=== PATIENT | male | born 1985 | race African-American/Black ===

== ENCOUNTER 2020-10-18 16:58 | Emergency (ER) | payer BC, SELFPAY ==
[2020-10-18 17:24] VITALS: BP 156/107; PULSE 89; RESP 20; TEMP 37.2; O2SAT 100
--- NOTE | 2020-10-18 17:43 | ED.MALEGU ---
HPI - Male Genitourinary General Chief complaint: Urogenital-Male Stated complaint: STD test Time Seen by Provider: 10/18/20 17:43 Source: patient and family Mode of arrival: ambulatory History of Present Illness HPI Narrative: Patient here for STD testing. Patient denies any known exposure denies any symptoms. Related Data Home Medications Medication Instructions Recorded Confirmed No Home Medications 10/18/20 10/18/20 Allergies Allergy/AdvReac Type Severity Reaction Status Date / Time No Known Drug Allergies Allergy Mild Verified 03/05/13 18:57 Review of Systems Review of Systems: CONSTITUTIONAL: Denies fever, chills, or sweats. EYES: Denies visual changes, redness, or discharge. ENT: Denies rhinorrhea, congestion, sore throat, or otalgia. CARDIOVASCULAR: Denies chest pain, palpitations, or edema. RESPIRATORY: Denies cough or dyspnea. GASTROINTESTINAL: Denies abdominal pain, nausea, vomiting, or diarrhea. GENITOURINARY: Denies dysuria or hematuria. SKIN: Denies rash or itching. MUSCULOSKELETAL: Denies back pain, joint pain, or myalgia. NEUROLOGIC: Denies headache, numbness, or weakness. PSYCHIATRIC: Denies anxiety or depression. PMFSH Social History Social History Gender identity (if verbalized by the patient): Male Comments At time of signature, agree with nursing past medical, surgical, social and family history. There is no relevant family history pertinent to the presenting complaint Exam Narrative: GENERAL: Well-appearing, well-nourished, and in no acute distress. HEAD: Normocephalic, atraumatic. EYES: PERRLA and EOMI. ENT: Nares clear, no rhinorrhea or epistaxis. Mucous membranes moist. NECK: Supple. CHEST: Clear to auscultation. No respiratory distress. HEART: Regular rate and rhythm. No murmur heard. Normal peripheral pulses. ABDOMEN: Soft, nontender, nondistended, normal active bowel sounds. EXTREMITIES: Normal range of motion. No edema. SKIN: Warm, dry, no rash. NEURO: No focal deficits. Alert and oriented x3. Mustapha Coma Scale Eye Opening: Spontaneous 4 [place] Coma Scale Motor: Obeys Commands 6 [place] Coma Scale Verbal: Oriented 5 [place] Coma Scale Total 15 Course Vital Signs Vital signs: Vital Signs Temperature 37.2 C 10/18/20 17:24 Pulse Rate 89 10/18/20 17:24 Respiratory Rate 20 10/18/20 17:24 Blood Pressure 156/107 H 10/18/20 17:24 Pulse Oximetry 100 10/18/20 17:24 Temperature 37.2 C 10/18/20 17:24 Pulse Rate 89 10/18/20 17:24 Respiratory Rate 20 10/18/20 17:24 Blood Pressure 156/107 H 10/18/20 17:24 Pulse Oximetry 100 10/18/20 17:24 Addressed elevated BP today. Today's blood pressure higher than recommended range. Discussed importance of follow -up with PCP and possible ocean transportation intermediary effects/cardiovascular events related to HTN. Currently patient denies headache, dizziness, vision changes, CP or shortness of breath. Please BAIRON schedule a followup visit with your personal physician for further evaluation and treatment. Including recheck and discussion of your blood pressure. If your symptoms persist, change or worsen significantly before you can contact your personal physician then please, without delay, go to the emergency department for further evaluation Discussed with patient hypertension. Today's blood pressure higher than recommended range. Discussed importance of follow -up with PCP and CV events related to HTN. Currently patient denies headache, vision changes, CP or shortness of breath. Critical dx considered and discussed with pt. Educated patient on red flag s/s and to go to ED if s/s occur. Discussed with pt when to return to [facility] or primary care provider. Pt gave verbal undertstanding, all questions were answered, and pt was agreeable to plan MDM - Male Genitourinary Differential Diagnosis Differential diagnosis: Likely urinary tract infection, urethritis, epididymitis, genital herpes simplex, acute retention of urine, in
== END 2020-10-18 18:05 | disposition home or self-care (01) ==
PROVIDERS: Emergency Provider Nurse Practitioner Family
DX: A64 Unspecified sexually transmitted disease (principal)
CPT/HCPCS: 81003; 87491; 87591; 87661; 99213; G0463

== ENCOUNTER 2025-01-06 15:44 | Emergency (ER) | payer BC, SELFPAY ==
--- OUTSIDE RECORDS SUMMARY | 2024-01-09 | XMS_ITS | Continuity of Care Document ---
Author Organization [facility] Address [address] [place] [address] [address] [place] [address] Phone Care Team Providers Care Burglar Alarm Inspector Name Role Phone Michael DAVENPORT, Sherry Unavailable Unavailable Allergies, Adverse Reactions, Alerts Substance Reaction Status Criticality No Known Allergies Active No Inform ation Procedures Procedure Date FUNDUS PHOTOGRAPHY CORNEAL TOPOGRAPHY REFRACTION OFFICE CONSULTATION OFFICE/OUTPATIENT VISIT, [facility] CORNEAL TOPOGRAPHY EYE EXAM WITH PHOTOS REFRACTION Results Test Name Date and Time Measure Units Reference Range Abnormal Flag Status Commen ts Panel Description: [id number] Final Image Zeiss Result 1 Panel Description: [id number] Final Image Zeiss Result 2 Advance Directives Directive Yes / No Effective Date File Name No Information Encounters Encounter Description Practice Location Reason(s) For Visit Diagnoses Date Provider Providers Copied on Encounter OFFICE CONSULTATION [facility], [address] [place] [address], [id number], tel:[phone] [facility] blurry vision (chief complaint) ExotropiaMyop ia, bilateral 4 Michael Sanchesin. [address], [place], [place], [id number], [place]. tel:[phone] Referring Provider: Family Friends A. OFFICE/OUTPAT IENT VISIT, [facility], [address] [place] [address] [address], [place], [place], [id number], tel:[phone] [facility] LHI eval (chief complaint) ExophoriaAsti gmatism of both eyes [address] Janice Smith. [address], [address], [place], [place], [id number], . tel:[phone] Referring Provider: Luis Rodriguez, [address], [place], [address]. tel:[phone] Family History Family Member Type Diagnosis Age At Onset No Information Payers Payer name Insurance type Covered libertarian ID Authorcatarinoa manjeet(s) [facility] [employer] [facility] [id number] Social History Type Description Quantity Date Captured Comments Alcohol Use Details Unknown Caffeine Use Details Unknown Tobacco Use Status Current non-smoker Smoking Status Never smoker Non-Smoking Tobacco Use Details : No Details Available : No Details Available Sex Male Vital Signs Date / Time: Height Weight BMI Pulse Rate Blood Pressure Temperature Respiratory Rate Body Surface Area Head Circumference Head Circ. Percentile Wt./Jimmie. Percentile BMI percentile Pulse Ox Inhaled Ox 8:15 AM 70.00 in 77.111 kg (170.00 lbs) 24.3 9 kg/m eter (2) Chief Complaint And Reason For Visit From encounter dated '01/09/2024 06:00'. blurry vision (chief complaint). Description: The 38 year old male presents for evaluation of blurry vision, patient says that he didn't notice anything wrong with his vision until he did thevision test for the [facility]. He says that vision in OD was blurry. OS vision seems to be good. He has noticed that when he's tired OD seems to float. Denies pain/discomfort. Reason For Referral Reason For Referral No Information Plan Of Treatment Date Type Action Status Future Order: Radiology Order Ni dek OPD III NV ([id number]), Sent on: Sent History Of Present Illness Encounter Date Complaint History Of Prese nt Illness blurry vision The 38 year old male presents for evaluation of blurry vision, patient says that he didn't notice anything wrong with his vision until he did the vision test for the [facility]. He says that vision in OD was blurry. OS vision seems to be good. He has noticed that when he's tired OD seems to float. Denies pain/discomfort. I eval Patient presents for I eval. Patient reports that when he's looking straight ahead, if there's any activity to the right side, his OD will move independently of the OS and track it. He reports no issues with vision. 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 He noticed it about 15 years ago and it's constant w/o change. Functional Status Date Functional Assessmen t No Information Instructions Date Instruction Additional Infor mation Impression/Plan Related to Myopi a, bilateral Impression/Plan Related to Exotr opia Impression/Plan - Di scussed diagnosis in detail with patient. Corneal brad, Mrx, and Fundus photos were ordered today. Related to Astigmatism of both eyes Impression/Plan - Di scussed diagnosis in detail with patient. Related to Exophoria Assessments Type Assessment Date assessment Exotropia assessment Myopia, bilateral impression Myopia, bilateral: H52.13 impression Exotropia: H50.10 Patient Care Teams Name Effective Dates (start - stop) Status Members No Information
[2025-01-06 15:54] VITALS: BP 206/141; PULSE 87; RESP 18; TEMP 36.4; O2SAT 100
[2025-01-06 16:02] VITALS: BP 177/132; PULSE 87; RESP 14; O2SAT 99
[2025-01-06 16:31] LABS: Hematocrit 39.0 % (42.0-52.0); Hemoglobin 13.3 g/dL (14.0-18.0); Immature Granulocyte Percent A 0.4 % (0-0.5); Lymphocytes Absolute Auto 2.00 K/mm3 (0.9-3.2); Mean Corpuscular HGB Conc 34.1 g/dl (32-36); Mean Corpuscular Hemoglobin 29.3 pg (26-34); Mean Corpuscular Volume 85.9 fl (80-100); Nucleated Red Blood Cells Absolute Auto 0.000 K/mm3 (0.0-0.012); Nucleated Red Blood Cells Perc 0.0 % (0.0-0.2); Platelet Count Result 214 k/mm3 (150-375); Red Blood Count 4.54 M/mm3 (4.6-6.20); White Blood Count 8.0 K/mm3 (4.5-10.0)
[2025-01-06 16:56] LABS: Alanine Aminotransferase 29 U/L (6-50); Albumin Level 4.3 g/dL (3.5-5.1); Alkaline Phosphatase 52 U/L (38-126); Anion Gap 7 mmol/L (4-12); Aspartate Amino Transferase 41 U/L (17-59); Bilirubin,Total 0.5 mg/dL (0.2-1.3); Blood Urea Nitrogen 17 mg/dL (9-20); Calcium 9.0 mg/dL (8.4-10.2); Carbon Dioxide 28 mmol/L (22-30); Chloride 103 mmol/L (98-107); Estimated CRCL calculation 75 ml/min; Estimated Glomerular Filt Rate 57; Glucose 101 mg/dL (65-110); Potassium 4.2 mmol/L (3.4-5.0); Sodium 138 mmol/L (137-145); Total Protein 7.7 g/dL (6.3-8.2)
--- NOTE | 2025-01-06 16:58 | ED_ITS ---
HPI - Recheck/Abnormal Lab/Rx General Chief Complaint: Recheck/Abnormal Lab/Rx Stated Complaint: htn Time Seen by Provider: 01/06/25 15:59 Source: patient Mode of arrival: ambulatory Limitations: no limitations History of Present Illness HPI narrative: This is a 39-year-old male that presents to the emergency department for elevated blood pressure reading. He was seen at a dentist office and told his blood pressure was elevated and he should go to the ER. He does not have any symptoms. Related Data Allergies Allergy/AdvReac Type Severity Reaction Status Date / Time No Known Allergies Allergy Verified 01/06/25 15:46 Review of Systems 2 Review of Systems: All systems reviewed & are unremarkable except as noted in HPI and below PMFSH Social History Social History Gender identity (if verbalized by the patient): Male Exam 2 Narrative: GENERAL: Well-appearing, well-nourished, and in no acute distress. HEAD: Normocephalic, atraumatic. EYES: EOMI. CHEST: Clear to auscultation. No respiratory distress. No wheezes rales or rhonchi HEART: Regular rate and rhythm. No murmur heard. Normal peripheral pulses. EXTREMITIES: Normal range of motion. No edema. SKIN: Warm, dry, no rash. NEURO: No focal deficits. Alert and oriented x3. PSYCH: Normal mood and affect Course Vital Signs Vital signs: Vital Signs Temperature 97.6 F 01/06/25 15:54 Pulse Rate 87 01/06/25 15:54 Respiratory Rate 18 01/06/25 15:54 Blood Pressure 206/141 H 01/06/25 15:54 Pulse Oximetry 100 01/06/25 15:54 Temperature 97.6 F 01/06/25 15:54 Pulse Rate 87 01/06/25 16:02 Respiratory Rate 14 01/06/25 16:02 Blood Pressure 177/132 H 01/06/25 16:02 Pulse Oximetry 99 01/06/25 16:02 MDM - Recheck/Abnormal Lab/Rx MDM Narrative Medical decision making narrative: Patient presents to the ER for asymptomatic hypertension. Blood pressure elevated to 200 upon arrival. Down trended to 170s without intervention. Will be started on blood pressure medication, given follow-up with primary provider. He was given warnings to return to the ER Lab Data Attestation: I reviewed the patient's lab results. 01/06/25 16:26 01/06/25 16:26 Labs: Lab Results 01/06/25 Range/Units 16:26 WBC 8.0 (4.5-10.0) K/mm3 RBC 4.54 L (4.6-6.20) M/mm3 Hgb 13.3 L (14.0-18.0) g/dL Hct 39.0 L (42.0-52.0) % MCV 85.9 (80-100) fl MCH 29.3 (26-34) pg MCHC 34.1 (32-36) g/dl RDW 13.5 (11.5-14.5) % Plt Count 214 (150-375) k/mm3 MPV 12.4 H (7.4-10.4) fl Immature Gran % (Auto) 0.4 (0-0.5) % Neut % (Auto) 62.5 (45.5-73.1) % Lymph % (Auto) 25.0 (18.3-44.2) % [place] % (Auto) 8.6 H (2.6-8.5) % Eos % (Auto) 3.0 (0-4.4) % Baso % (Auto) 0.5 (0.2-1.2) % Lymph # (Auto) 2.00 (0.9-3.2) K/mm3 [place] # (Auto) 0.7 H (0.1-0.6) K/mm3 Eos # (Auto) 0.2 (0-0.3) K/mm3 Baso # (Auto) 0.0 (0.0-0.1) K/mm3 Abs Immat Gran (auto) 0.03 (0.00-0.031) K/mm3 Absolute Neuts (auto) 5.0 (1.3-6.7) K/mm3 Absolute Nucleated RBC 0.000 (0.0-0.012) K/mm3 Nucleated RBC % 0.0 (0.0-0.2) % Sodium 138 (137-145) mmol/L Potassium 4.2 (3.4-5.0) mmol/L Chloride 103 (98-107) mmol/L Carbon Dioxide 28 (22-30) mmol/L Anion Gap 7 (4-12) mmol/L BUN 17 (9-20) mg/dL Creatinine 1.38 H (0.7-1.3) mg/dL Estim Creat Clear Calc 75 ml/min Estimated GFR 57 L (59 - ) Glucose 101 (65-110) mg/dL Calcium 9.0 (8.4-10.2) mg/dL Total Bilirubin 0.5 (0.2-1.3) mg/dL AST 41 (17-59) U/L ALT 29 (6-50) U/L Alkaline Phosphatase 52 (38-126) U/L Total Protein 7.7 (6.3-8.2) g/dL Albumin 4.3 (3.5-5.1) g/dL Critical Care Time Critical Care Time Critical Care Time: No Discharge Plan Discharge Clinical Impression: Hypertension Qualifiers: Hypertension type: unspecified Qualified Code(s): I10 - Essential (primary) hypertension Patient Disposition: Home Condition: Stable Instructions: Hypertension (ED) Additional Instructions: Return to the emergency department if you experience fever, chest pain, shortness of breath, weakness, numbness, or any other symptoms that are concerning to you. Take blood pressure medication as prescribed Follow up with primary care doctor Patient Language: Luxembourgish Prescriptions: New amlodipine 5 mg tablet 5 mg PO DAILY 30 Days Qty: 30 0RF Follow-up/Referrals: Nahomy Neri DO [Physician, Family Practice] PHYSICIAN,SERVICES CLERK [Primary Care Provider, Internal Medicine]
[2025-01-06 17:06] VITALS: BP 177/129; PULSE 85; RESP 17; O2SAT 100
--- OUTSIDE RECORDS SUMMARY | 2025-01-07 15:04 | XMS_ITS | Clinical Summary ---
Author Organization [facility] Care Team Providers Care Real Estate Management Specialist Name Role Phone Unavailable Primary Care Provider Unavailabl e Social History Tobacco Use Types Packs/Day Years Used Date Smoking Tobacco: Never Assessed Sex and Gender Information Value Date Recorded Sex Assigned at Not on file Legal Sex Male 3:15 PM FRONT OFFICE REPRESENTATIVE Gender Identity Not on file Sexual Orientation Not on file Plan of Treatment Health Maintenance Due Date Last Done Comments Hepatitis C Virus (HCV) Screening 1985 TdaP Immunization 1985 Human Papillomavirus (HPV) Immunization (1 - 3-dose SCDM series) 2012 Influenza Immunization (#1) 2024 SARS-COV-2 Immunization ( season) 2024 Respiratory Syncytial Virus (RSV) Immunization (Adult) (1 - 1-dose 75+ series) 2060 Hepatitis B Immunization Completed 998, 01/29/1997, 10/16/1996 DTaP/Tdap/Td Immunization Discontinued 2000, 09/19/1990, 01/13/1988, Additional history exists Meningococcal Immunization (ACWY) Aged Out No longer eligible based on patient's age to complete this topic Pneumococcal Immunization Combined Aged Out No longer eligible based on patient's age to complete this topic Rotavirus Immunization Aged Out No lo nger eligible based on patient's age to complete this topic
== END 2025-01-06 17:15 | disposition home or self-care (01) ==
PROVIDERS: Emergency Provider Physician Assistant
DX: I10 Essential (primary) hypertension (principal)
CPT/HCPCS: 36415; 80053; 85025; 99283; A9270